=== PATIENT | female | born 1970 | race Caucasian/White ===

== ENCOUNTER 2018-06-19 11:35 | Inpatient (IN) ==
[2018-06-19] MEDS ORDERED: *HR* Morphine 2 MG/ML SYRINGE IVP ONE (13:38)
[2018-06-19] MEDS ORDERED: Naloxone 0.4 MG/ML INJ IVP PRN (13:41)
[2018-06-19] MEDS ORDERED: Dextrose Gel 15 GM/37.5 ML TUBE PO PRN ×2 (13:44)
[2018-06-19] MEDS ORDERED: D5% in Water 1,000 ML IVC PRN (13:44)
[2018-06-19] MEDS ORDERED: Aspirin 325 MG TABLET PO ONE (13:44)
[2018-06-19] MEDS ORDERED: *HR* Dextrose 50 % in Water (Syg) 50 ML SYRINGE IVP PRN (13:44)
[2018-06-19] MEDS ORDERED: Heparin 25,000 UNIT/500 ML D5W 25,000 UNIT/500 ML BAG IVC SCH (13:45)
[2018-06-19] MEDS ORDERED: *HR* Heparin 5,000 UNIT/ML VIAL IVP PRN ×2 (13:45)
[2018-06-19] MEDS ORDERED: *HR* Heparin 5,000 UNIT/ML VIAL IVP ONE (13:45)
[2018-06-19] MEDS ORDERED: Nitroglycerin 0.4 MG TAB.SUBL SL PRN (13:48)
[2018-06-19] MEDS ORDERED: D5% in 0.9% NACL 1,000 ML IVC SCH (14:00)
[2018-06-19 14:19] LABS: Hematocrit 35.6 % (35.3-44.9); Hemoglobin 11.6 g/dL (11.5-15.4); Mean Corpuscular HGB Conc 32.6 g/dL (31.6-35.5); Mean Corpuscular Hemoglobin 28.2 pg (28.0-33.3); Mean Corpuscular Volume 86.6 fL (83.0-100.0); Mean Platelet Volume 10.2 fL (9.4-12.4); Platelet Count 189 K/mcL (140-400); Red Blood Count 4.11 M/mcL (3.82-4.97); Red Cell Distribution Width 14.8 % (11.5-14.5)
[2018-06-19] MEDS: Pantoprazole 40 MG VIAL IVP SCH (14:20)
--- NOTE | 2018-06-19 14:24 | Internal Med History&Physical ---
Date of Encounter: 06/19/18 Time of Encounter: 14:15 Internal Medicine - H&P: HPI Chief complaint: epigastric abdominal pain Admitted From: Home Plans for Post Hospital Care: Home History of present illness: Ms. Lujan is a 47 year old female past medical history of H. pylori, and PUD. Patient was transferred from [place] due to persistent epigastric abdominal pain, elevated troponin and ekg changes. Patient reports she started having epigastric abdominal discomfort on Wednesday. Reports that she went to an urgent care and was prescribed medication to treat a possible H. pylori infection as she had H. pylori a couple of years ago and had similar symptoms but after she took the medications he pain got worse and started vomiting for which she decided to go to the ED on Wednesday. She describes the pain as severe 10/10 epigastric, radiating to the RUQ, associated with nausea and 2 episodes of non-bilious, non-bloody vomiting. Refers the pain is aggravated by movements and alleviated by some of the medications she had in the ED. Reports poor PO intake for the past two days due to pain. Denies chest pain, but reports chest discomfort, which gets worse with deep inspiration. At [facility] patient was managed with PPI, antiemetic and pain medications. As pain did not improve trops were sent and came back positive 0.08 and some EKG changes for which the patient was transferred to [facility] for further work-up. Past Med Surg Social Fam HX - Past Medical History Medical history: GERD Psychiatric history: anxiety - Past Surgical History Surgical History: appendectomy Additional surgical history: Right ovary removal,"ablasion", tonsilectomy - Social History Smoking Status: Former smoker Smokeless Tobacco Status: No Alcohol use: none Drug use: none Internal Medicine - H&P: Meds Amoxicillin 500 mg PO BID 06/18/18 [History] Citalopram [CeleXA] 20 mg PO DAILY 06/18/18 [History] Clarithromycin [Clarithromycin ER] 500 mg PO DAILY 06/18/18 [History] Omeprazole [PriLOSEC] 20 mg PO DAILY 06/18/18 [History] metroNIDAZOLE [Flagyl] 500 mg PO TID 06/18/18 [History] Allergy/AdvReac Type Severity Reaction Status Date / Time No Known Allergies Allergy Verified 06/18/18 15:03 All Systems PM: A 10-system review of systems was performed and is negative for pertinent findings except as documented above in the HPI. - Constitutional Constitutional: no chills, no fever(s), no falls, no weight gain, no weight loss - EENT Eyes: no irritation - Cardiovascular Cardiovascular ROS IM: no chest pain, no dyspnea, no dyspnea on exertion, no edema, no lightheadedness, no orthopnea, no palpitations - Respiratory Respiratory: no cough, no wheezing, no pain on inspiration, no excessive phlegm production - Gastrointestinal Gastrointestinal: abdominal pain, nausea, vomiting, no diarrhea, no dysphagia, no loose stools - Genitourinary Genitourinary: no dysuria, no flank pain - Musculoskeletal Musculoskeletal ROS IM: no back pain, no muscle weakness - Integumentary Integumentary IM: no erythema - Neurological Neurological ROS: no lack of coordination, no loss of vision, no memory loss - Psychiatric Psychiatric: no anxiety, no hopelessness, no irritability - Endocrine Endocrine IM: no polydipsia, no polyphagia, no polyuria - Hematologic/Lymphatic Hematologic/Lymphatic: no lymphadenopathy - Allergic/Immunologic Allergic/Immunologic: no wheezing Additional comments: Rest of the review of system negative. - Constitutional Vitals: Temp Pulse Resp BP Pulse Ox 98.7 F 92 14 112/73 93 06/19/18 13:31 06/19/18 13:31 06/19/18 13:31 06/19/18 13:31 06/19/18 13:31 Exam: Vitals: reviewed. General: Alert and oriented x4. Moderate distress due to epigastric pain. Skin: Normal color, no rash, no lesions. HEENT: EOM, pupils equal, round and reactive. Cardiovascular: RRR, normal S1 & S2, no rubs, murmurs or gallops. Lungs: CTA b/l, no wheezes or crackles. Abdomen: Soft, mildly tender to deep palpation in the epigastric area, no rigidity or guarding. Extremities: No deformity, no edema or tenderness, no joint swelling or clubbing. Neurological: Normal cognition and motor skills. Rest of the physical exam is non contributory - Assessment and plan (1) Elevated troponin Current Visit: Yes Status: Acute Assessment and plan: Possible ACS. patient with EKG change and persistent epigastric abdominal pain Plan Telemetry monitoring cardiology consult serial trops TTE to evaluate for wall motion abnormalities Hold on heparin drip, pending cardiology eval, trops trending down with repeat 0.04 aspirin 325mg/PO x1 nitroglycerin 0.4mg/Sl x3 Q5mins for pain started on a low dose bb (2) Abdominal pain Current Visit: No Status: Acute Assessment and plan: Possible secondary to pancreatitis, patient with two out three point of diagnostic criteria. cannot r/o possible PUD vs gastritis. Plan if cardiology r/o pain as cardiac in origin, consider GI consult for EGD NPO started on Pantoprazole 40mg/IV daily gently hydration with D5NS@100ml/hr morphine 1ml/IV Q4HR for pain control Ondansetron 4mg/IV Q4HR PRN for nausea and vomiting accu-checks Q6HRs plus lispro low dose sliding scale. Qualifiers: Abdominal location: epigastric Qualified Code(s): R10.13 - Epigastric pain (3) Depressed affect Current Visit: No Status: Chronic Assessment and plan: Patient on Citalopram 20mg/PO daily. Hold while patient is NPO. (4) DVT prophylaxis Current Visit: Yes Status: Acute Assessment and plan: started on heparin 5000 units SubQ Q8HRs - Time Spent With Patient Total time spent is greater than 50% in coordination of care (as documented) at patient's floor/unit and/or counseling patient: Greater than 35 minutes (45)
[2018-06-19] MEDS: D5% in 0.9% NACL 1,000 ML IVC SCH (14:26)
[2018-06-19 14:30] LABS: INR 1.1; Prothrombin Time 12.4 Seconds (9.4-12.1)
[2018-06-19 14:31] LABS: Activated Partial Thrombo Time 29.6 Seconds (26.0-36.0)
[2018-06-19 14:39] LABS: Alanine Aminotransferase 12 Units/L (7-52); Albumin 3.2 g/dL (3.5-5.7); Albumin/Globulin Ratio 1.1 (1.1-2.2); Alkaline Phosphatase 86 Units/L (34-104); Amylase 27 Units/L (29-103); Aspartate Amino Transferase 17 Units/L (13-39); BUN/Creatinine Ratio 7 (6-26); Bilirubin,Direct 0.1 mg/dL (0.0-0.2); Bilirubin,Indirect 0.3 mg/dL (0.0-1.2); Bilirubin,Total 0.4 mg/dL (0.3-1.0); Blood Urea Nitrogen 7 mg/dL (6-20); Calcium 8.5 mg/dL (8.6-10.3); Carbon Dioxide 21 mEq/L (23-29); Chloride 108 mEq/L (98-107); Chol/HDL Ratio 4.4 (0-4.9); Cholesterol 170 mg/dL (< 200); Globulin 2.8 g/dL (2.4-3.5); Glucose 91 mg/dL (70-105); HDL Cholesterol 39 mg/dL (40-59); LDL Cholesterol,Calculated 110 mg/dL (0-99); Lipase 12 Units/L (11-82); Osmolality,Calculated 280 (280-300); Phosphorous 1.6 mg/dL (2.7-4.5); Potassium 3.6 mEq/L (3.5-5.1); Sodium 136 mEq/L (136-145); Triglycerides 106 mg/dL (< 150); eGFR For Non-African Americans 58 (> 60)
[2018-06-19 14:42] LABS: Troponin I 0.04 ng/mL (< 0.04)
[2018-06-19] MEDS: Ondansetron 4 MG/2 ML VIAL IVP PRN ×2 (15:00→22:10)
[2018-06-19] MEDS ORDERED: OXYCODONE Oral CONC 10 MG/0.5 ML ORAL.SYG SL PRN (15:28)
[2018-06-19] MEDS: OXYCODONE Oral CONC 10 MG/0.5 ML ORAL.SYG SL PRN ×2 (15:59→19:59)
[2018-06-19] MEDS ORDERED: Perflutren Lipid Microsphere 1.3 ML in 0.9 % Sodium Chloride 8.7 ML IVP ONE (16:23)
[2018-06-19] MEDS: *HR* Promethazine 25 MG/ML VIAL IVP PRN (17:00)
[2018-06-19] MEDS: *HR* Heparin 5,000 UNIT/ML VIAL SQ SCH ×2 (17:00→22:11)
[2018-06-19] MEDS: Insulin LISPRO 300 UNITS/3 ML VIAL SQ SCH (18:21)
[2018-06-20] MEDS: traMADol 50 MG TABLET PO PRN ×3 (00:04→16:38)
[2018-06-20] MEDS: *HR* Promethazine 25 MG/ML VIAL IVP PRN ×5 (00:04→20:56)
[2018-06-20] MEDS: Insulin LISPRO 300 UNITS/3 ML VIAL SQ SCH ×4 (00:18→18:34)
[2018-06-20] MEDS: D5% in 0.9% NACL 1,000 ML IVC SCH (00:44)
[2018-06-20] MEDS: *HR* Heparin 5,000 UNIT/ML VIAL SQ SCH ×3 (06:01→20:56)
[2018-06-20] MEDS: Pantoprazole 40 MG VIAL IVP SCH (07:39)
[2018-06-20] MEDS: Aspirin Enteric Coated 81 MG Tablet PO SCH (07:39)
[2018-06-20] MEDS: OXYCODONE Oral CONC 10 MG/0.5 ML ORAL.SYG SL PRN ×4 (07:39→22:54)
--- NOTE | 2018-06-20 09:14 | Cardiology Consult Note ---
Date of Encounter: 06/20/18 Time of Encounter: 09:00 Assessment and Plan (1) Elevated troponin Current Visit: Yes Status: Acute Troponin elevated in setting of nausea and emesis, likely demand ischemia. No chest pain. Her echo shows EF of 55% and no wall motion abnormalities noted. -Should require further GI workup -Continue telemetry (2) Abdominal pain Current Visit: No Status: Acute Associated with nausea and emesis. History of peptic ulcer disease. The pain as well as associated symptoms are likely related to GERD and requires further GI workup. No chest wall tenderness. No hematochezia or hematemesis. Notes a normal bowel movement prior to admission. -Continue to manage by primary -May benefit from GI workup -If has chest pain may benefit from outpatient stress test Qualifiers: Abdominal location: epigastric Qualified Code(s): R10.13 - Epigastric pain Discussion w patient/family: The assessment and plan as outlined above was discussed with the patient and/or family members who expressed understanding and agreement. All questions were answered. Thank you for involving us in the care of your patient. Please call with any questions. History of Present Illness Consult date: 06/19/18 Requesting physician: Tyrell Segura Consult reason: elevated troponin, Q waves Chief complaint: Nausea and emesis History of present illness: Ms. Lujan is a 47 year old female with past medical history of peptic ulcer disease and H.pylori who presented to the ED due to epigastric abdominal pain associated with nausea and emesis. She started having epigastric pain three days ago. The pain was described as sharp 10/10 with radiation to the right upper quadrant and two non bilious emesis. She has had poor oral intake. She denies pr egnancy noting she has an ablation in the past due to ovarian cysts. She denies hematochezia or hematemesis. She denies any episode of chest pain. She also denies chest pain or shortness of breath with activity or at rest. In [place] ED she had troponins drawn because her pain did not improve with pain medications, PPI or antiemetics. In [facility] her troponin was 008. Her troponin here has been 0.04, 0.06, 0.04 and 0.03. Today she is resting in bed and appear uncomfortable due to nausea. Her emesis has resolved. She denies fever, chills or paresthesia but complains of epigastric pain which is reproducible upon palpation. Past Med Surg Social Fam HX - Past Medical History Medical history: GERD Psychiatric history: anxiety - Past Surgical History Surgical History: appendectomy Additional surgical history: Right ovary removal,"ablasion", tonsilectomy - Social History Smoking Status: Former smoker Smokeless Tobacco Status: No Alcohol use: none Drug use: none Medications and Allergies Amoxicillin 500 mg PO BID 06/18/18 [History] Citalopram [CeleXA] 20 mg PO DAILY 06/18/18 [History] Clarithromycin [Clarithromycin ER] 500 mg PO DAILY 06/18/18 [History] Omeprazole [PriLOSEC] 20 mg PO DAILY 06/18/18 [History] metroNIDAZOLE [Flagyl] 500 mg PO TID 06/18/18 [History] Allergy/AdvReac Type Severity Reaction Status Date / Time No Known Allergies Allergy Verified 06/18/18 15:03 All Systems Review: The remainder of the systems were reviewed and are negative - Constitutional Constitutional: no chills, no fever(s), no weakness - Cardiovascular Cardiovascular: no chest pain at rest, no chest pain with exertion, no dyspnea at rest, no dyspnea on exertion, no orthopnea, no palpitations - Respiratory Respiratory: no cough, no dyspnea - Gastrointestinal Gastrointestinal: abdominal pain (epigastric), no constipation, no diarrhea, no hematemesis, no hematochezia - Genitourinary Genitourinary: no dysuria - Integumentary Integumentary: no erythema, no rash - Neurological Neurological: no focal weakness, no numbness Physical Examination Vital Signs, Last 4 Hours Temp Pulse Resp BP Pulse Ox 06/20/18 06:36 98.3 F 88 16 104/69 93 General: Conversant, Other (appears uncomfortable) HEENT: Atraumatic, Normocephaly, Mucus Membranes Moist Neck: No JVD, Normal carotid pulses Cardiac: Reg Rate and Rhythm, Normal S1 and S2 Lungs: Normal Breath Sounds, No Wheeze, Rales, Rhonchi Neuro: Alert and responsive, No focal deficits noted Abdomen: Soft, Other (appears distended with tenderness at epigastric region ) Skin: No rashes noted on visualized skin Musculoskeletal: No Chest Wall Tenderness Extremities: No Edema, Normal Pulses Results 06/20/18 08:13 06/20/18 09:07 Lab Results 06/19/18 06/19/18 06/19/18 14:03 14:03 14:03 WBC 11.3 H Hgb 11.6 D Hct 35.6 Plt Count 189 INR 1.1 APTT 29.6 Sodium 136 Potassium 3.6 Chloride 108 H Carbon Dioxide 21 L BUN 7 Creatinine 1.03 Glucose 91 Calcium 8.5 L Magnesium 2.0 Total Bilirubin 0.4 AST 17 ALT 12 Alkaline Phosphatase 86 Troponin I 0.04 H* Amylase 27 L Lipase 12 06/19/18 06/20/18 06/20/18 20:24 01:27 07:27 WBC Hgb Hct Plt Count INR APTT Sodium Potassium Chloride Carbon Dioxide BUN Creatinine Glucose Calcium Magnesium Total Bilirubin AST ALT Alkaline Phosphatase Troponin I 0.06 H* 0.04 H* 0.03 Amylase Lipase Consult Discharge Plan - Plan Referrals: Adele Batres CNP [Primary Care Provider] -
[2018-06-20 09:18] LABS: Hemoglobin 11.3 g/dL (11.5-15.4); Mean Corpuscular HGB Conc 31.4 g/dL (31.6-35.5); Mean Corpuscular Hemoglobin 27.8 pg (28.0-33.3); Mean Corpuscular Volume 88.7 fL (83.0-100.0); Platelet Count 184 K/mcL (140-400); Red Blood Count 4.06 M/mcL (3.82-4.97)
[2018-06-20 09:38] LABS: BUN/Creatinine Ratio 9 (6-26); Blood Urea Nitrogen 8 mg/dL (6-20); Calcium 8.5 mg/dL (8.6-10.3); Carbon Dioxide 22 mEq/L (23-29); Chloride 108 mEq/L (98-107); Glucose 126 mg/dL (70-105); Magnesium 2.1 mg/dL (1.6-2.6); Osmolality,Calculated 282 (280-300); Phosphorous 1.7 mg/dL (2.7-4.5); Potassium 3.8 mEq/L (3.5-5.1); Sodium 136 mEq/L (136-145); eGFR For Non-African Americans > 60 (> 60)
[2018-06-20] MEDS: Ondansetron 4 MG/2 ML VIAL IVP PRN ×3 (09:55→22:54)
[2018-06-20] MEDS ORDERED: D5% in 0.9% NACL 1,000 ML IVC SCH (12:31)
--- NOTE | 2018-06-20 12:35 | Internal Med Progress Note ---
Hospitalist Progress Note - Encounter Date of Encounter: 06/20/18 Time of Encounter: 12:33 - Subjective Interval History: Pt uncomfortable still having epigastric and RUQ pain radiating to back causing N/V. Denies fevers. No CP or SOB or diarrhea. - Exam Vitals: Temp Pulse Resp BP Pulse Ox 97.7 F 90 18 125/78 94 06/20/18 12:31 06/20/18 12:31 06/20/18 12:31 06/20/18 12:31 06/20/18 12:31 Exam: General: Alert and oriented x4. Moderate distress due to epigastric pain and nausea HEENT: sclerae anicteric, no jaundice in MM Cardiovascular: RRR, tachycardic Lungs: CTA b/l, no wheezes or crackles. Abdomen: Soft, tender to deep palpation in epigastrium, no rigidity Extremities: No edema Neurological: Normal cognition and motor skills, awake and fully oriented - Summary of Assessment and Plan Summary of Assessment and Plan: Danae Lujan is a 47 F w hx obesity, H pylori PUD, who p/w epigastric pain radiating to back a/w N/V, transferred here from OSH when trop mildly bumped to 0.08. Abdominal pain: epigastric radiating into back with leukocytosis, strong suspicion for pancreatitis given clinical picture, does have gallbladder and risk factors for cholecystitis, and has hx gastritis/PUD. CT a/p done at OSH does suggest fat stranding around head of pancreas which could correlate with pancreatitis. Lipase here not elevated on admission. No hx gallstones. No heavy EtOH use. - repeat lipase - check RUQ US - continue PPI IV - switch/increase MIVF to D5 0.45NS@150 - oral aisha liq for pain - zofran and phenergan prn n/v - GI consult in AM if results above not revealing Elevated trop: TTE done and normal, strong suspicion for demand ischemia, appreciate cardio eval Hypophosphatemia: replace and monitor Hyperchloremia: switch to cl poor fluid as above Obesity: BMI 37 PPx: lovenox FEN: NPO, MIVF as above Lines: PIV Consults: GI Code: full Dispo: inpatient for now, likely 2-3 more days, will be homegoing - Time Spent with Patient Total time spent is greater than 50% in coordination of care (as documented) at patient's floor/unit and/or counseling patient: 25 - 35 minutes Internal Medicine: Result - Labs CBC & Chem 7: 06/20/18 08:13 06/20/18 09:07 Labs: Short CBC 06/19/18 06/20/18 Range/Units 14:03 08:13 WBC 11.3 H 10.1 (4.3-11.1) K/mcL Hgb 11.6 D 11.3 L (11.5-15.4) g/dL Hct 35.6 36.0 (35.3-44.9) % Plt Count 189 184 (140-400) K/mcL BMP 06/19/18 06/20/18 14:03 09:07 Sodium 136 136 Potassium 3.6 3.8 Chloride 108 H 108 H Carbon Dioxide 21 L 22 L BUN 7 8 Creatinine 1.03 0.85 Glucose 91 126 H Calcium 8.5 L 8.5 L Cardiac Enzymes 06/19/18 06/19/18 06/20/18 Range/Units 14:03 20:24 01:27 Troponin I 0.04 H* 0.06 H* 0.04 H* (< 0.04) ng/mL 06/20/18 Range/Units 07:27 Troponin I 0.03 (< 0.04) ng/mL Liver Function 06/19/18 Range/Units 14:03 Total Bilirubin 0.4 (0.3-1.0) mg/dL Direct Bilirubin 0.1 (0.0-0.2) mg/dL AST 17 (13-39) Units/L ALT 12 (7-52) Units/L Alkaline Phosphatase 86 (34-104) Units/L Albumin 3.2 L (3.5-5.7) g/dL - ABG Interpretation ABG results: PT/INR, D-dimer PT 12.4 Seconds (9.4-12.1) H 06/19/18 14:03 - Impressions Impressions Echocardiogram 06/19/18 13:45 Impressions: LVEF 55%. Normal LV chamber size, wall thickness and function. Normal left ventricular diastolic function. Normal right ventricular structure and function. Unable to estimate RVSP due to lack of TR jet. No significant valvular dysfunction Left Ventricular Wall Motion: Rest Echo Findings All wall segments showed normal motion. Findings: Study Quality * Technically adequate exam. ECG Findings * Sinus tachycardia. Left Ventricle * LVEF 55%. * Normal LV chamber size, wall thickness and function. * Normal left ventricular diastolic function. * Definity echo contrast was used. Right Ventricle * Normal right ventricular structure and function. Left Atrium * Normal left atrial size. Right Atrium * Normal right atrial size. Interatrial Septum * No evidence of PFO by color Doppler. Aortic Valve * Trileaflet aortic valve. * Normal aortic valve structure. * No aortic regurgitation. * No aortic stenosis. Mitral Valve * Normal mitral valve structure. * No mitral regurgitation. * No mitral stenosis. Tricuspid Valve * No tricuspid regurgitation. * No tricuspid stenosis. * Unable to estimate RVSP due to lack of TR jet. * Normal tricuspid valve structure. Pulmonic Valve * Pulmonic valve is not well visualized. * No pulmonic regurgitation. Aorta * Normally sized aortic root. Pericardium * The pericardium appears normal. IVC * The IVC is not well evaluated. Consult Discharge Plan - Plan Referrals: Adele Batres CNP [Primary Care Provider] -
[2018-06-20 15:51] LABS: Amylase 23 Units/L (29-103); Lipase 14 Units/L (11-82)
[2018-06-20] MEDS: D5% in 0.45% NACL 1,000 ML IVC SCH ×2 (16:39→23:28)
[2018-06-21] MEDS: Insulin LISPRO 300 UNITS/3 ML VIAL SQ SCH ×4 (01:08→18:34)
[2018-06-21] MEDS: traMADol 50 MG TABLET PO PRN ×3 (02:14→18:39)
[2018-06-21] MEDS: *HR* Promethazine 25 MG/ML VIAL IVP PRN ×5 (02:15→23:46)
[2018-06-21] MEDS: *HR* Heparin 5,000 UNIT/ML VIAL SQ SCH ×3 (05:54→20:12)
[2018-06-21 08:10] LABS: Basophils % 0.4 %; Eosinophils # 0.3 K/mcL (0.0-0.6); Eosinophils % 2.9 %; Hematocrit 35.7 % (35.3-44.9); Hemoglobin 11.5 g/dL (11.5-15.4); Immature Granulocytes % 0.5 % (0-4); Lymphocytes # 1.8 K/mcL (0.6-4.6); Lymphocytes % 20.8 %; Mean Corpuscular HGB Conc 32.2 g/dL (31.6-35.5); Mean Corpuscular Volume 87.1 fL (83.0-100.0); Mean Platelet Volume 10.4 fL (9.4-12.4); Monocytes # 0.8 K/mcL (0.0-1.3); Monocytes % 9.5 %; Neutrophils # 5.7 K/mcL (1.6-8.9); Platelet Count 198 K/mcL (140-400); Red Cell Distribution Width 14.6 % (11.5-14.5); Segmented Neutrophils % 65.9 %
[2018-06-21 08:27] LABS: Alanine Aminotransferase 9 Units/L (7-52); Albumin 3.3 g/dL (3.5-5.7); Alkaline Phosphatase 96 Units/L (34-104); Aspartate Amino Transferase 12 Units/L (13-39); BUN/Creatinine Ratio 8 (6-26); Bilirubin,Direct 0.1 mg/dL (0.0-0.2); Bilirubin,Indirect 0.4 mg/dL (0.0-1.2); Bilirubin,Total 0.5 mg/dL (0.3-1.0); Blood Urea Nitrogen 8 mg/dL (6-20); Calcium 8.7 mg/dL (8.6-10.3); Carbon Dioxide 24 mEq/L (23-29); Chloride 106 mEq/L (98-107); Globulin 3.3 g/dL (2.4-3.5); Glucose 110 mg/dL (70-105); Magnesium 2.2 mg/dL (1.6-2.6); Osmolality,Calculated 283 (280-300); Phosphorous 2.5 mg/dL (2.7-4.5); Potassium 3.4 mEq/L (3.5-5.1); Sodium 137 mEq/L (136-145); Total Protein 6.6 g/dL (6.4-8.9); eGFR For Non-African Americans > 60 (> 60)
[2018-06-21] MEDS: OXYCODONE Oral CONC 10 MG/0.5 ML ORAL.SYG SL PRN ×2 (08:36→20:13)
[2018-06-21] MEDS: Pantoprazole 40 MG VIAL IVP SCH (08:40)
[2018-06-21] MEDS: Aspirin Enteric Coated 81 MG Tablet PO SCH (08:46)
--- NOTE | 2018-06-21 11:45 | Internal Med Progress Note ---
Hospitalist Progress Note - Encounter Date of Encounter: 06/21/18 Time of Encounter: 11:44 - Subjective Interval History: Pt reports much better control of pain overnight and this AM. Still some nausea but no vomiting. No diarrhea. No hematemesis or hematochezia/melena. Belly is less tender today but still uncomfortable. No fevers. Does state that her PIV yesterday infiltrated and she has some swelling and discomfort LUE. - Exam Vitals: Temp Pulse Resp BP Pulse Ox 98.2 F 81 16 120/87 96 06/21/18 07:12 06/21/18 07:12 06/21/18 07:12 06/21/18 07:12 06/21/18 07:12 Exam: General: Alert and oriented x4. Mild distress due to epigastric pain and nausea but much more comfortable today and not diaphoretic HEENT: sclerae anicteric, no jaundice in MM Cardiovascular: RRR Lungs: CTA b/l, no wheezes or crackles. Abdomen: Soft, tender to deep palpation in epigastrium RUQ and umbilical region Extremities: No edema. +LUE antecub fossa with palpable subq cord extending a few inches superiorly with faint overlying erythema Neurological: Normal cognition and motor skills, awake and fully oriented - Summary of Assessment and Plan Summary of Assessment and Plan: Danae Lujan is a 47 F w hx obesity, H pylori PUD, who p/w epigastric pain radiating to back a/w N/V, transferred here from OSH when trop mildly bumped to 0.08. Abdominal pain: epigastric radiating into back initially with leukocytosis, CT suggestive of possible pancreatitis but lipase not evelated, RUQ US showing normal GB w/o stones or sludge and no ductal dilation, does have hx gastritis/PUD - continue PPI IV - GI consult for EGD, to possibly occur later today - decrease MIVF to D5 0.45NS@100 - oral aisha liq for pain - zofran and phenergan prn n/v LUE infiltrated IV: noted, monitor for development of phlebitis Elevated trop: TTE done and normal, strong suspicion for demand ischemia, appreciate cardio eval Hypophosphatemia: replace again and monitor Hypokalemia: replace and monitor Hyperchloremia: resolved with Cl poor fluid Obesity: BMI 37 PPx: lovenox FEN: NPO, MIVF as above Lines: EPIV Consults: GI Code: full Dispo: inpatient for now, likely 2-3 more days, will be homegoing - Time Spent with Patient Total time spent is greater than 50% in coordination of care (as documented) at patient's floor/unit and/or counseling patient: Internal Medicine: Result - Labs CBC & Chem 7: 06/21/18 07:49 06/21/18 07:49 Labs: Short CBC 06/21/18 Range/Units 07:49 WBC 8.6 (4.3-11.1) K/mcL Hgb 11.5 (11.5-15.4) g/dL Hct 35.7 (35.3-44.9) % Plt Count 198 (140-400) K/mcL Neutrophils # 5.7 (1.6-8.9) K/mcL BMP 06/20/18 06/21/18 09:07 07:49 Sodium 136 137 Potassium 3.8 3.4 L Chloride 108 H 106 Carbon Dioxide 22 L 24 BUN 8 8 Creatinine 0.85 0.95 Glucose 126 H 110 H Calcium 8.5 L 8.7 Liver Function 06/21/18 Range/Units 07:49 Total Bilirubin 0.5 (0.3-1.0) mg/dL Direct Bilirubin 0.1 (0.0-0.2) mg/dL AST 12 L (13-39) Units/L ALT 9 (7-52) Units/L Alkaline Phosphatase 96 (34-104) Units/L Albumin 3.3 L (3.5-5.7) g/dL - ABG Interpretation ABG results: PT/INR, D-dimer PT 12.4 Seconds (9.4-12.1) H 06/19/18 14:03 - Impressions Impressions Abdomen Ultrasound 06/20/18 15:00 IMPRESSION: Gallbladder wall thickening without evidence of acute cholecystitis by sonographic criteria. If there is clinical concern for acalculous cholecystitis or biliary dysfunction a nuclear medicine hepatobiliary scan could always be considered to evaluate for function. There is diffuse hepatic steatosis on limited imaging of the liver. Pancreas is not visualized. D/ / 06/20/2018 15:51:28 Michael Huang MD / [email or web address] Interpreting Provider: Michael Huang MD Consult Discharge Plan - Plan Referrals: Adele Batres CNP [Primary Care Provider] -
--- NOTE | 2018-06-21 11:52 | Gastroenterology Consult Note ---
<Matthew Casillas - Last Filed: 06/21/18 11:55> Date of Encounter: 06/21/18 Time of Encounter: 09:40 - Assessment and plan (1) Abdominal pain Current Visit: No Status: Acute Assessment and plan: Epigastric pain associated with nausea and vomiting. History of H pylori. Continue PPI and anti-emetics. CT A/P with ill definition of head of pancreas and uncinate process with adjacent fat stranding. Lipase 14. RUQ US with gallbladder wall thickening, and diffuse hepatic steatosis. Plan for EGD today to r/o esophagitis, gastritis, duodenitis, PUD, MW tear, or AVM. Keep NPO for now. Qualifiers: Abdominal location: epigastric Qualified Code(s): R10.13 - Epigastric pain (2) Hepatic steatosis Current Visit: Yes Status: Acute Assessment and plan: RUQ US with gallbladder wall thickening, and diffuse hepatic steatosis. LIFESTYLE MODIFICATION: DIETARY ADVISE: Gradual weight loss of 7-10%. Moderate caloric restriction of 500-700 Kcal/day Eliminate or significantly reduce saturated fatty acids and high fructose corn syrup from diet Consider omega-3 fatty acids supplements Consider regular coffee consumption, 2-3 cups/day if can be tolerated EXERCISE ADVISE: Moderate exercise on treadmill, elliptical or in a pool, 4-5/week for 30-45 minutes. Resistance training 3 times/week Pharmacotherapy: Vitamin E 800 IU daily (keeping in mind that it has been shown to increase all causes of mortality and may be linked to prostate cancer) Pioglitazone 30-45 mg/day (can cause weight gain, bladder cancer, can cause cadiovascular side effects) Statins are safe to use, and also improve portal hypertension and decrease risk of HCC. Control of the components of metabolic syndrome - Time Spent With Patient Total time spent is greater than 50% in coordination of care (as documented) at patient's floor/unit and/or counseling patient: GI History of Present Illness - Data of Consult Patient: new to practice Consult date: 06/21/18 Requesting Physician: Osmar Villagran - Consult Narrative Reason for consult: Abdominal pain, N/V History of present illness: Ms. Lujan is a 47 year old female with PMHx of GERD, PUD, H pylori who presented to the ED with epigastric pain, nausea, and vomiting. Pain started 3 day prior to admission. Patient states the pain is worse with movement. She reports vomiting three times. RUQ US with gallbladder wall thickening and diffuse hepatic steatosis. CT A/P with ill definition of head of pancreas and uncinate process with adjacent fat stranding. We were consulted to evaluate her abdominal pain. Procedures: EGD 08/27/2016 Dr. Mcwilliams: Gastritis, H. pylori positive. Colonoscopy 08/27/2016 Dr. Mcwilliams: Normal. NSAIDs: None Anticoagulation: None Past Med Surg Social Fam HX - Past Medical History Medical history: GERD Psychiatric history: anxiety - Past Surgical History Surgical History: appendectomy Additional surgical history: Right ovary removal,"ablasion", tonsilectomy - Social History Smoking Status: Former smoker Smokeless Tobacco Status: No Alcohol use: none Drug use: none - Gastrointestinal Gastrointestinal: Present: as per HPI - Constitutional Constitutional: as per HPI - EENT Eyes: as per HPI Ears: Present: as per HPI Nose, mouth and throat: Present: as per HPI - Cardiovascular Cardiovascular ROS: Present: as per HPI - Respiratory Respiratory IM: Present: as per HPI - Genitourinary Genitourinary: Absent: change in color, Urinary frequency - Neurological ROS Neurological GI: Present: as per HPI - Hematologic/Lymphatic Hematologic/Lymphatic pediatric: Present: as per HPI - Musculoskeletal Musculoskeletal ROS GI: Present: as per HPI - Integumentary Integumentary GI: Present: as per HPI - Psychiatric ROS Psychiatric GI: Present: as per HPI - Endocrine Endocrine IM: Present: as per HPI - Constitutional Vitals: Temp Pulse Resp BP Pulse Ox 98.2 F 81 16 120/87 96 06/21/18 07:12 06/21/18 07:12 06/21/18 07:12 06/21/18 07:12 06/21/18 07:12 General appearance: Present: cooperative, A&O X 3, no acute distress, answers questions appropriately - Head Head exam: Present: atraumatic, normocephalic - Eye Eye exam: Present: normal appearance, sclera anicteric - ENT ENT exam: Present: mucous membranes dry - Neck Neck exam general surgery: Present: normal inspection, trachea midline - Respiratory Respiratory exam: Present: CTAB. Absent: rales, rhonchi - Cardiovascular Cardiovascular exam: Present: RRR, +S1, +S2 - GI/Abdominal GI/Abdominal exam: Present: soft, tenderness (RUQ and epigastric), no peritoneal signs. Absent: distended, firm, guarding - Rectal Rectal exam: Present: deferred - Extremities Exam Extremities exam: Present: warm - Neurological Exam Neurological exam: Present: no focal deficits - Psychiatric Psychiatric exam: Present: normal affect, normal mood - Skin Skin exam: Present: dry, intact, normal color, warm Results - Labs CBC & Chem 7: 06/21/18 07:49 06/21/18 07:49 Labs: Last Result Calcium 8.7 mg/dL (8.6-10.3) 06/21/18 07:49 Troponin I 0.03 ng/mL (< 0.04) 06/20/18 07:27 Triglycerides 106 mg/dL (< 150) 06/19/18 14:03 Entire Visit Hgb 11.5 g/dL (11.5-15.4) 06/21/18 07:49 Hct 35.7 % (35.3-44.9) 06/21/18 07:49 PT 12.4 Seconds (9.4-12.1) H 06/19/18 14:03 Total Bilirubin 0.5 mg/dL (0.3-1.0) 06/21/18 07:49 AST 12 Units/L (13-39) L 06/21/18 07:49 ALT 9 Units/L (7-52) 06/21/18 07:49 Amylase 23 Units/L (29-103) L 06/20/18 09:07 Lipase 14 Units/L (11-82) 06/20/18 09:07 - ABG ABG results: PT/INR, D-dimer PT 12.4 Seconds (9.4-12.1) H 06/19/18 14:03 - Impressions Impressions Abdomen Ultrasound 06/20/18 15:00 IMPRESSION: Gallbladder wall thickening without evidence of acute cholecystitis by sonographic criteria. If there is clinical concern for acalculous cholecystitis or biliary dysfunction a nuclear medicine hepatobiliary scan could always be considered to evaluate for function. There is diffuse hepatic steatosis on limited imaging of the liver. Pancreas is not visualized. D/ / 06/20/2018 15:51:28 Michael Huang MD / [facility] Interpreting Provider: Michael Huang MD Consult Discharge Plan - Plan Referrals: Adele Batres, CUSTOMER SOLUTIONS SPECIALIST [Primary Care Provider] - <Meseret Galloway - Last Filed: 06/21/18 15:13> Date of Encounter: 06/21/18 Time of Encounter: 14:00 - Time Spent With Patient Total time spent is greater than 50% in coordination of care (as documented) at patient's floor/unit and/or counseling patient: GI History of Present Illness - Data of Consult Requesting Physician: Osmar Villagran - Consult Narrative History of present illness: Ms. Lujan is a 47 year old female - Constitutional Vitals: Temp Pulse Resp BP Pulse Ox 97.9 F 79 16 108/75 96 06/21/18 11:54 06/21/18 11:54 06/21/18 11:54 06/21/18 11:54 06/21/18 11:54 Results - Labs CBC & Chem 7: 06/21/18 07:49 06/21/18 07:49 Labs: Last Result Calcium 8.7 mg/dL (8.6-10.3) 06/21/18 07:49 Ferritin 219 ng/mL (10-120) H 06/21/18 12:54 Troponin I 0.03 ng/mL (< 0.04) 06/20/18 07:27 Triglycerides 106 mg/dL (< 150) 06/19/18 14:03 Entire Visit Hgb 11.5 g/dL (11.5-15.4) 06/21/18 07:49 Hct 35.7 % (35.3-44.9) 06/21/18 07:49 PT 12.4 Seconds (9.4-12.1) H 06/19/18 14:03 Ferritin 219 ng/mL (10-120) H 06/21/18 12:54 Total Bilirubin 0.5 mg/dL (0.3-1.0) 06/21/18 07:49 AST 12 Units/L (13-39) L 06/21/18 07:49 ALT 9 Units/L (7-52) 06/21/18 07:49 Amylase 23 Units/L (29-103) L 06/20/18 09:07 Lipase 14 Units/L (11-82) 06/20/18 09:07 - ABG ABG results: PT/INR, D-dimer PT 12.4 Seconds (9.4-12.1) H 06/19/18 14:03 - Impressions Impressions Abdomen Ultrasound 06/20/18 15:00 IMPRESSION: Gallbladder wall thickening without evidence of acute cholecystitis by sonographic criteria. If there is clinical concern for acalculous cholecystitis or biliary dysfunction a nuclear medicine hepatobiliary scan could always be considered to evaluate for function. There is diffuse hepatic steatosis on limited imaging of the liver. Pancreas is not visualized. D/ / 06/20/2018 15:51:28 Michael Huang MD / [facility] Interpreting Provider: Michael Huang MD - Attending Attestation I have personally performed a face to face evaluation on this patient. I have reviewed and agree with the care plan. History and Exam by me shows: Patient with epigastric pain that was sudden in onset CT showing some haziness in the mesentery. on examination does has significant epigastric tenderness. Assessment epigastric pain in this patient with previous history of peptic ulcer. Now CAT scan is showing some inflammation around the duodenum and also some inflammation in the mesentery. Recommendation: EGD today to rule out gastritis peptic ulcer disease etc.
[2018-06-21] MEDS: D5% in 0.45% NACL 1,000 ML IVC SCH ×2 (12:55→23:45)
[2018-06-21 14:28] LABS: Hepatitis B Surface Antigen Nonreactive (Nonreactive)
[2018-06-21 14:57] LABS: Hepatitis C Virus Antibody Nonreactive (Nonreactive)
[2018-06-21 14:58] LABS: Hepatitis B Core IgM Nonreactive (Nonreactive)
[2018-06-21 14:59] LABS: Hepatitis A Antibody IgM Nonreactive (Nonreactive)
[2018-06-21] MEDS ORDERED: *HR* FentaNYL (PF) 100 MCG/2 ML VIAL ONE (16:36)
[2018-06-21] MEDS ORDERED: *HR* Midazolam HCl 5 MG/5 ML VIAL IVP ONE ×2 (16:37→17:01)
[2018-06-21] MEDS ORDERED: *HR* FentaNYL (PF) 100 MCG/2 ML VIAL IVP ONE (17:01)
[2018-06-21] MEDS ORDERED: Simethicone 40 MG/0.6 ML MLS IR ONE (17:01)
[2018-06-21] MEDS ORDERED: Tetracaine/Benzocaine/Butamben 1 SPRAY AEROSOL MM ONE (17:01)
--- NOTE | 2018-06-21 17:02 | Pre-Sedation Evaluation ---
Pre-sedation evaluation - Pre-sedation checklist Date of procedure: 06/21/18 Procedure: Egd Recent Vitals: Last Vital Signs Temp 97.6 F 06/21/18 16:58 Pulse 88 06/21/18 16:58 Resp 16 06/21/18 16:58 BP 159/88 06/21/18 16:58 Pulse Ox 96 06/21/18 16:58 H&P (including ROS) documented in medical record: Yes Previous reaction to sedatives/anesthetics: No Dietary Status: NPO after Midnight Dentition: No loose teeth or bridges ASA Classification *see protocol: CLASS II-Mild systemic disease Plan of Care: Pt appropriate candidate for procedure/moderate/conscious sedation, Risks/benefits of procedure/sedation discussed w/ patient/family
--- NOTE | 2018-06-21 17:16 | Electrocardiograph Report ---
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
--- NOTE | 2018-06-21 17:38 | Electrocardiograph Report ---
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
[2018-06-22] MEDS: traMADol 50 MG TABLET PO PRN (01:56)
[2018-06-22] MEDS ORDERED: Acetaminophen 325 MG TABLET PO PRN (05:58)
[2018-06-22] MEDS: *HR* Promethazine 25 MG/ML VIAL IVP PRN (06:41)
[2018-06-22] MEDS: *HR* Heparin 5,000 UNIT/ML VIAL SQ SCH (06:42)
[2018-06-22 07:52] LABS: Hematocrit 31.1 % (35.3-44.9); Hemoglobin 10.2 g/dL (11.5-15.4); Mean Corpuscular HGB Conc 32.8 g/dL (31.6-35.5); Mean Corpuscular Hemoglobin 27.9 pg (28.0-33.3); Mean Corpuscular Volume 85.2 fL (83.0-100.0); Mean Platelet Volume 10.7 fL (9.4-12.4); Platelet Count 223 K/mcL (140-400); Red Blood Count 3.65 M/mcL (3.82-4.97); Red Cell Distribution Width 14.2 % (11.5-14.5)
[2018-06-22] MEDS: Insulin LISPRO 300 UNITS/3 ML VIAL SQ SCH ×2 (07:54→12:24)
[2018-06-22 07:59] LABS: Alanine Aminotransferase 10 Units/L (7-52); Albumin 2.8 g/dL (3.5-5.7); Albumin/Globulin Ratio 0.9 (1.1-2.2); Alkaline Phosphatase 92 Units/L (34-104); Aspartate Amino Transferase 11 Units/L (13-39); BUN/Creatinine Ratio 6 (6-26); Bilirubin,Direct 0.4 mg/dL (0.0-0.2); Bilirubin,Indirect 0.4 mg/dL (0.0-1.2); Bilirubin,Total 0.8 mg/dL (0.3-1.0); Blood Urea Nitrogen 5 mg/dL (6-20); Calcium 8.3 mg/dL (8.6-10.3); Carbon Dioxide 22 mEq/L (23-29); Chloride 105 mEq/L (98-107); Globulin 3.1 g/dL (2.4-3.5); Glucose 118 mg/dL (70-105); Magnesium 1.8 mg/dL (1.6-2.6); Osmolality,Calculated 276 (280-300); Potassium 3.7 mEq/L (3.5-5.1); Sodium 134 mEq/L (136-145); Total Protein 5.9 g/dL (6.4-8.9); eGFR For Non-African Americans > 60 (> 60)
[2018-06-22] MEDS: Pantoprazole 40 MG VIAL IVP SCH (10:01)
[2018-06-22] MEDS: Aspirin Enteric Coated 81 MG Tablet PO SCH (10:02)
--- NOTE | 2018-06-22 11:32 | Gastroenterology Progress Note ---
<Nicola Bell - Last Filed: 06/22/18 11:30> Date of Encounter: 06/22/18 Time of Encounter: 09:15 - Assessment and plan (1) Abdominal pain Status: Acute Assessment and plan: Patient initially presented with epigastric pain with n/v Patient is s/p EGD which showed mild gastritis She was started on liquid carafate solution and now reports her symptoms are much improved Patient may also have mesenteritis, but with improvement of her symptoms there is no need to start steroids at this time Patient ok to be discharged from GI standpoint Qualifiers: Abdominal location: epigastric Qualified Code(s): R10.13 - Epigastric pain - Time Spent With Patient Total time spent is greater than 50% in coordination of care (as documented) at patient's floor/unit and/or counseling patient: - Subjective Interval history: Patient doing well this morning. She states her abdominal pain has greatly improved since starting the carafate. She denies nausea, vomiting, CP, SOB, fevers/chills, numbness/tingling. - Constitutional Vitals: Temp Pulse Resp BP Pulse Ox 98.0 F 93 20 136/95 95 06/22/18 06:50 06/22/18 06:50 06/22/18 06:50 06/22/18 06:50 06/22/18 06:50 General appearance: Present: A&O X 3, no acute distress - Respiratory Respiratory exam: Present: CTAB - Cardiovascular Cardiovascular exam: Present: RRR - GI/Abdominal GI/Abdominal exam: Present: normal bowel sounds, soft. Absent: distended, tenderness - Neurological Exam Neurological exam: Present: no focal deficits - Psychiatric Psychiatric exam: Present: normal affect, normal mood - Skin Skin exam: Present: normal color Results - Labs CBC & Chem 7: 06/22/18 07:19 06/22/18 07:19 Labs: Last Result Calcium 8.3 mg/dL (8.6-10.3) L 06/22/18 07:19 Ferritin 219 ng/mL (10-120) H 06/21/18 12:54 Troponin I 0.03 ng/mL (< 0.04) 06/20/18 07:27 Triglycerides 106 mg/dL (< 150) 06/19/18 14:03 Entire Visit Hgb 10.2 g/dL (11.5-15.4) L 06/22/18 07:19 Hct 31.1 % (35.3-44.9) L 06/22/18 07:19 PT 12.4 Seconds (9.4-12.1) H 06/19/18 14:03 Ferritin 219 ng/mL (10-120) H 06/21/18 12:54 Total Bilirubin 0.8 mg/dL (0.3-1.0) 06/22/18 07:19 AST 11 Units/L (13-39) L 06/22/18 07:19 ALT 10 Units/L (7-52) 06/22/18 07:19 Amylase 23 Units/L (29-103) L 06/20/18 09:07 Lipase 14 Units/L (11-82) 06/20/18 09:07 - ABG ABG results: PT/INR, D-dimer PT 12.4 Seconds (9.4-12.1) H 06/19/18 14:03 Consult Discharge Plan - Plan Instructions: Sucralfate (By mouth), Omeprazole (By mouth), Ondansetron (By mouth), Gastritis (DC) Referrals: Adele Batres, ONCOLOGY TECHNICIAN [Primary Care Provider] - (called office and they said the patient can just come in whenever they want to ) Prescriptions: Omeprazole [PriLOSEC] 40 mg PO DAILY 30 Days #30 cap Ondansetron [Zuplenz] 4 mg PO Q6H PRN 5 Days #20 film PRN Reason: Nausea Sucralfate [Carafate] 1 gm PO TID 30 Days #90 ud <Meseret Galloway - Last Filed: 06/22/18 17:26> Date of Encounter: 06/22/18 Time of Encounter: 13:30 - Time Spent With Patient Total time spent is greater than 50% in coordination of care (as documented) at patient's floor/unit and/or counseling patient: - Constitutional Vitals: Temp Pulse Resp BP Pulse Ox 98.0 F 76 17 96/61 92 06/22/18 12:08 06/22/18 12:08 06/22/18 12:08 06/22/18 12:08 06/22/18 12:08 Results - Labs CBC & Chem 7: 06/22/18 07:19 06/22/18 07:19 Labs: Last Result Calcium 8.3 mg/dL (8.6-10.3) L 06/22/18 07:19 Ferritin 219 ng/mL (10-120) H 06/21/18 12:54 Troponin I 0.03 ng/mL (< 0.04) 06/20/18 07:27 Triglycerides 106 mg/dL (< 150) 06/19/18 14:03 Entire Visit Hgb 10.2 g/dL (11.5-15.4) L 06/22/18 07:19 Hct 31.1 % (35.3-44.9) L 06/22/18 07:19 PT 12.4 Seconds (9.4-12.1) H 06/19/18 14:03 Ferritin 219 ng/mL (10-120) H 06/21/18 12:54 Total Bilirubin 0.8 mg/dL (0.3-1.0) 06/22/18 07:19 AST 11 Units/L (13-39) L 06/22/18 07:19 ALT 10 Units/L (7-52) 06/22/18 07:19 Amylase 23 Units/L (29-103) L 06/20/18 09:07 Lipase 14 Units/L (11-82) 06/20/18 09:07 - ABG ABG results: PT/INR, D-dimer PT 12.4 Seconds (9.4-12.1) H 06/19/18 14:03 - Attending Attestation I examined this patient and my medical decision-making was reviewed with the Resident Physician. I agree with the documented findings, disposition and treat ment plan as described except to the extent set forth below. Patient seen per patient abdominal pain is much better than yesterday. On examination: Mild epigastric tenderness. Assessment: Patient with acute . mesenteritis and EGD with gastritis. Rec: Continue supportive care including PPI and Carafate and pain medication
[2018-06-22 12:12] VITALS: BP 96/61
--- NOTE | 2018-06-22 12:53 | Discharge Summary ---
- NOTES TO OUTPATIENT PROVIDER Notes to Outpatient Provider: 1. Added omeprazole and carafate po per GI. Follow-up pathology results as outpatient with GI. Orders not resulted at time of discharge: Pending orders 06/21/18 12:54 AFP Tumor Marker Non- Routine SAMREEN IgG SONYA rflx IFA Routine [id number]-[id number] Routine Ceruloplasmin Routine F-Actin IgG Reflex Sm Muscle Routine Liver Fibrosis for NAFLD Routine MPO/PR3 (ANCA) Antibodies Routine Mitochondrial M2 Antibody, IgG Routine 06/21/18 17:12 Surgical Pathology [PTH] Routine Date of Encounter: 06/22/18 Time of Encounter: 12:00 - Discharge Diagnosis (1) Abdominal pain Priority: Primary Status: Acute Qualifiers: Abdominal location: epigastric Qualified Code(s): R10.13 - Epigastric pain (2) Depressed affect Priority: Secondary Status: Chronic (3) Elevated troponin Priority: Secondary Status: Acute (4) DVT prophylaxis Priority: Secondary Status: Acute Hospital course: Ms. Lujan is a 47 year old female present to ER for epigastric pain, nausea and vomiting. Patient was also found mild elevated troponin. Patient was admitted for ACS rule out, she was placed on cardiac monitoring. 4 sets of troponin was checked, which shows 0.04-0.06-0.04-0.03. Cardiology saw patient and consider demand ischemia. Patient has history of H. pylori infection, GI consult was called and saw patient, EGD has been done, which shows gastritis. Patient had a CT abdominal which shows possible acute pancreatitis, however, her lipase and amylase is within normal limit. Patient was placed on IV PPI and by mouth carafate. Her abdominal pain has improved after treatment. I have seen and examined the patient today. Patient feels better, still mild nausea but no vomiting. Has 2 loose stool. Still has a mild epigastric tenderness, without rebound or guarding. Patient was advised to repeat imaging per GI to further r/o pancreas inflammation/lesions when abdominal pain resolved. Pt has adequate intake, tolerate regular diet well. GI cleared her to be discharged. Will DC patient home today with by mouth omeprazole and Carafate, follow-up with GI as outpatient. Discharge discussed with: patient - Time Spent with Patient Total time spent providing and/or coordinating discharge services: 25 minutes Less than 30 minutes - Discharge Medications Prescriptions: Omeprazole [PriLOSEC] 40 mg PO DAILY 30 Days #30 cap Ondansetron [Zuplenz] 4 mg PO Q6H PRN 5 Days #20 film PRN Reason: Nausea Sucralfate [Carafate] 1 gm PO TID 30 Days #90 udc Home Medications: Citalopram [CeleXA] 20 mg PO DAILY 06/18/18 [History] Albuterol Sulfate [Albuterol Inhaler] 2 puff IH Q6H PRN 06/20/18 [History] Amitriptyline [Elavil] 25 mg PO DAILY 06/20/18 [History] Loratadine [Claritin] 10 mg PO DAILY 06/20/18 [History] Omeprazole [PriLOSEC] 40 mg PO DAILY 30 Days #30 cap 06/22/18 [Rx] Ondansetron [Zuplenz] 4 mg PO Q6H PRN 5 Days #20 film 06/22/18 [Rx] Sucralfate [Carafate] 1 gm PO TID 30 Days #90 udc 06/22/18 [Rx] Allergies/Adverse Reactions: Allergy/AdvReac Type Severity Reaction Status Date / Time No Known Allergies Allergy Verified 06/20/18 17:56 Date of admission: 06/20/18 15:34 Primary care physician: Adele Batres CNP Consults: 06/20/18 12:28 Consult to Gastroenterology [CONS] Routine Consulting Provider: [facility] Reason for Consult: abd pain radiating into back, N/V, leukocytosis Call Completed: Yes Discharging clinician: Prem Emanuel Anticipated date of discharge: 06/22/18 - Constitutional Vitals: Temp Pulse Resp BP Pulse Ox 98.0 F 76 17 96/61 92 06/22/18 12:08 06/22/18 12:08 06/22/18 12:08 06/22/18 12:08 06/22/18 12:08 Exam: General: Alert and oriented x4. in NAD HEENT: sclerae anicteric, no jaundice in MM Cardiovascular: RRR Lungs: CTA b/l, no wheezes or crackles. Abdomen: Soft, mild tender to deep palpation in epigastrium, without rebound or guarding. BS present Extremities: No edema. Mild left arm tenderness because of previous IV infiltrate, improved. Neurological: Normal cognition and motor skills, awake and fully oriented - Patient Status Disposition: Home, Self-Care Condition: Good Functional capacity at discharge: independent ambulation Overall status at discharge: patient is progressing back to baseline - Discharge Instructions Follow Up With: Adele Batres MICROCOMPUTER SUPPORT SPECIALIST [Primary Care Provider] - (called office and they said the patient can just come in whenever they want to ) - Diet and Activity Activity: increase activity as tolerated Diet: advance to your usual diet, regular diet
[2018-06-22] MEDS ORDERED: Insulin LISPRO 300 UNITS/3 ML VIAL SQ SCH (21:00)
[2018-06-23 10:42] LABS: AFP Tumor Marker Non-Pregnant 1 ng/mL (0-9); F-Actin (sm muscle) Ab IgG 11 Units (0-19); Myeloperoxidase Ab 0 AU/mL (0-19); Serine Protease-3 Antibody 1 AU/mL (0-19)
[2018-06-23 10:50] LABS: ANA IgG by ELISA NONE DETECTED (None Detected)
== END 2018-06-22 14:41 | disposition home or self-care (01) | DRG 391 ==
LOC: 2NENU → SUATTDRO 13:22
PROVIDERS: ADMIT Internal Medicine; ATTEND Internal Medicine
PROC: ENDOEBX (2018-06-21 16:30)